=== PATIENT | male | born 2000 | race Caucasian/White ===

== ENCOUNTER 2021-03-10 14:32 | Emergency (ER) | payer OTHER ==
[2021-03-10 14:45] VITALS: BP 115/72; PULSE 97; TEMP 98.2
--- NOTE | 2021-03-10 15:11 | ED ---
URI HPI - General Chief Complaint: Upper Respiratory Infection Stated Complaint: Sore Throat Time Seen by Provider: 03/10/21 14:59 Source: patient Mode of arrival: ambulatory Limitations: no limitations - History of Present Illness Initial Comments: 21-year-old male presents to the emergency department with a chief complaint of sore throat since yesterday. Patient also reports in a productive cough but denies any chest pain shortness of breath. He reports some sinus congestion with occasional rhinorrhea , clear. 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 He has been wearing a mask. Denies any direct cold exposure. No history of Covid. Received one dose of mother and vaccine recently. Denies other complaints. - Related Data Allergies Allergy/AdvReac Type Severity Reaction Status Date / Time No Known Allergies Allergy Verified 03/10/21 14:45 Review of Systems ROS Statement: Those systems with pertinent positive or pertinent negative responses have been documented in the HPI. ROS Other: All systems not noted in ROS Statement are negative. Past Medical History Past Medical History: No Reported History History of Any Multi-Drug Resistant Organisms: None Reported Past Surgical History: No Surgical Hx Reported Past Psychological History: Anxiety Smoking Status: Never smoker Past Alcohol Use History: None Reported Past Drug Use History: None Reported General Exam Limitations: no limitations General appearance: alert, in no apparent distress, anxious Head exam: Present: atraumatic, normocephalic, normal inspection Eye exam: Present: normal appearance, PERRL, EOMI Pupils: Present: normal accommodation ENT exam: Present: normal exam, normal oropharynx, mucous membranes moist, TM's normal bilaterally, normal external ear exam Neck exam: Present: normal inspection, full ROM. Absent: tenderness, lymphadenopathy Respiratory exam: Present: normal lung sounds bilaterally. Absent: respiratory distress, wheezes, rales, rhonchi, stridor, chest wall tenderness, accessory muscle use Cardiovascular Exam: Present: regular rate, normal rhythm, normal heart sounds. Absent: systolic murmur, diastolic murmur Extremities exam: Present: normal inspection, full ROM, normal capillary refill. Absent: tenderness, pedal edema, joint swelling Back exam: Present: normal inspection, full ROM. Absent: tenderness, CVA tenderness (R), CVA tenderness (L), muscle spasm, paraspinal tenderness, vertebral tenderness Neurological exam: Present: alert, oriented X3, CN II-XII intact, normal gait Psychiatric exam: Present: normal affect, normal mood Skin exam: Present: warm, dry, intact, normal color Course Vital Signs 03/10/21 03/10/21 14:43 15:13 Temperature 98.2 F Pulse Rate 97 Respiratory 20 18 Rate Blood Pressure 115/72 O2 Sat by Pulse 98 Oximetry Medical Decision Making - Medical Decision Making 21-year-old male presents to emergency Department with a chief complaint of cough congestion and sore throat. On physical examination, lungs are clear to auscultation. ENT examination is unremarkable. Vital signs are within normal limits. Patient is quite anxious and states that he might have overreacted by coming to the emergency department. I did obtain an Covid test which was negative. I do suspect a possible upper respiratory infection. I advised him to follow-up with his primary care physician. Return parameters were discussed with patient was upsetting agreeable. Case discussed with physician. - Lab Data Lab Results 03/10/21 Range/Units 15:11 Coronavirus (PCR) Not Detected (Not Detectd) Disposition Clinical Impression: Acute upper respiratory infection Disposition: HOME SELF-CARE Condition: Stable Instructions (If sedation given, give patient instructions): Upper Respiratory Infection (ED) Additional Instructions: Please return to the Emergency Department if symptoms worsen or any other concerns. Is patient prescribed a controlled substance at d/c from ED?: No Referrals: Horacio Lemus MD [Primary Care Provider] - 1-2 days Time of Disposition: 15:45
[2021-03-10 15:14] VITALS: RESP 18
== END 2021-03-10 16:02 | disposition home or self-care (01) ==
LOC: EC 14:32
DX: J02.9 Acute pharyngitis, unspecified (principal); Z20.822 Contact with and (suspected) exposure to COVID-19
CPT/HCPCS: 87635; 99283